=== PATIENT | male | born 1985 | race Hispanic/Latino ===

== ENCOUNTER 2020-07-01 07:36 | Emergency (ER) | payer OTHER, SELFPAY ==
[2020-07-01] MEDS ORDERED: Cyclobenzaprine 10 MG TAB ONE (08:09)
[2020-07-01] MEDS ORDERED: Boostrix 0.5 ML (Tdap) VIAL ONE (08:09)
[2020-07-01] MEDS ORDERED: Ketorolac Tromethamine 30 MG/ML VIAL ONE (08:09)
[2020-07-01] MEDS ORDERED: Lidocaine 1% (PF) 30 ML VIAL ONE (08:20)
== END 2020-07-01 10:30 | disposition home or self-care (01) ==
LOC: ERS 07:36
DX: S51.812A Laceration without foreign body of left forearm, initial encounter (principal); M25.512 Pain in left shoulder; V59.9XXA Occupant (driver) (passenger) of pick-up truck or van injured in unspecified traffic accident, initial encounter
CPT/HCPCS: 12002; 90471; 90715; 96372; J1885; J2001